=== PATIENT | male | born 1960 | race Caucasian/White ===

== ENCOUNTER 2023-07-09 14:58 | Outpatient (CLI) | payer OTHER | END 2023-07-09 15:04 | disposition home or self-care (01) | LOC: RAD 14:58 | DX: M99.01 Segmental and somatic dysfunction of cervical region (principal); M99.02 Segmental and somatic dysfunction of thoracic region; M99.03 Segmental and somatic dysfunction of lumbar region; M25.561 Pain in right knee ==